=== PATIENT | female | born 1995 | race Caucasian/White ===

== ENCOUNTER 2018-03-22 17:14 | Emergency (ER) | payer OTHER ==
[~2018-03-22] VITALS: Ht 172.7 cm; Wt 85.7 kg
[2018-03-22 17:44] VITALS: BP 112/68
--- NOTE | 2018-03-22 17:46 | ED.ADGEN ---
Past History Past Medical History: Other Past Surgical History: Other Alcohol Use: None Drug Use: None Adult General Chief Complaint Chief Complaint Abnormal menstrual periods HPI HPI Patient is a 22-year-old female who presents with abnormal menstrual periods for the past several months. Patient recently released from nursing home and states that she went several months without having a period then started having a. Approximately 6 weeks ago and has had abnormal heavy menstrual periods since that time. Patient was seen by local primary care physician 3 weeks ago and started on a 5 day course of control. She states she discontinued control and has symptoms became worse after taking medication. Patient reports occasional cramping, and dark red menstrual blood that is more rust-colored in appearance. No dizziness lightheadedness. No other acute symptoms or complaints. Patient states she has not had chance to follow-up with her primary care physician due to a demanding work schedule and inability to get time off work.[] Review of Systems Review of Systems Review symptoms as per history of present illness. All other review symptoms are negative. All other systems were reviewed and found to be within normal limits, except as documented in this note. Allergies Allergies Allergies Coded Allergies Type Severity Reaction Last Updated Verified strawberry Allergy Unknown 01/26/15 No Physical Exam Physical Exam Constitutional: Well developed, well nourished, no acute distress, non-toxic appearance. [] HENT: Normocephalic, atraumatic, bilateral external ears normal, oropharynx moist, no oral exudates, nose normal. [] Eyes: PERRLA, EOMI, conjunctiva normal, no discharge. [] Neck: Normal range of motion, no tenderness, supple, no stridor. [] Cardiovascular:Heart rate regular rhythm, no murmur [] Lungs & Thorax: Bilateral breath sounds clear to auscultation [] Abdomen: Bowel sounds normal, soft, no tenderness, no masses, no pulsatile masses. [] Neurologic: Alert and oriented X 3, normal motor function, normal sensory function.[] Psychologic: Affect normal, judgement normal, mood normal. [] EKG EKG [] Radiology/Procedures Radiology/Procedures [] Course & Med Decision Making Course & Med Decision Making Pertinent Labs and Imaging studies reviewed. (See chart for details) [No acute symptoms or complaints. Patient provided resources for outpatient follow-up. Final Impression Final Impression [1. Abnormal uterine bleeding] Dragon Disclaimer Dragon Disclaimer This electronic medical record was generated, in whole or in part, using a voice recognition dictation system. MAMADOU GALLEGOS DO Mar 22, 2018 17:46
== END 2018-03-22 17:58 | disposition home or self-care (01) ==
LOC: ER 17:14
DX: N93.8 Other specified abnormal uterine and vaginal bleeding (principal); Z91.018 Allergy to other foods
CPT/HCPCS: 99281

== ENCOUNTER 2018-06-24 23:05 | Emergency (ER) | payer OTHER ==
[~2018-06-24] VITALS: Ht 172.7 cm; Wt 83.9 kg
[2018-06-24 23:15] VITALS: BP 128/69
--- NOTE | 2018-06-24 23:44 | PHYS DOC ---
Past History Past Medical History: No Pertinent History Past Surgical History: Other Alcohol Use: None Drug Use: None Adult General Chief Complaint Chief Complaint: SEXUALLY TRANSMITTED DISEASE HPI HPI Patient is a 22-year-old female who presents to the emergency department for evaluation. Her main concern is STD exposure. She states her boyfriend informed her that he cheated on her, and had contracted chlamydia and gonorrhea. The patient does admit to having some vaginal discharge, which has been present for the past few days. She denies any dysuria. She also reports having had problems with menorrhagia for several months, and has seen a primary care physician was put on control but it has not resolved the symptoms. She denies any dizziness lightheadedness, or any other concerns. She has no pain at this time. Review of Systems Review of Systems Constitutional: Denies fever or chills [] Eyes: Denies change in visual acuity, redness, or eye pain [] HENT: Denies nasal congestion or sore throat [] Respiratory: Denies cough or shortness of breath [] Cardiovascular: No additional information not addressed in HPI [] GI: Denies abdominal pain, nausea, vomiting, bloody stools or diarrhea [] : Denies dysuria or hematuria , or urinary frequency[] Musculoskeletal: Denies back pain or joint pain [] Integument: Denies rash or skin lesions [] All other systems were reviewed and found to be within normal limits, except as documented in this note. Current Medications Current Medications Current Medications Medications (Trade) Dose Ordered Sig/Tong Start Time Stop Time Status Last Admin Dose Admin Azithromycin (Zithromax) 1,000 mg 1X ONCE 06/24/18 23:45 06/24/18 23:46 Ceftriaxone Sodium (Rocephin Im) 250 mg 1X ONCE 06/24/18 23:45 06/24/18 23:46 Metronidazole (Flagyl) 2,000 mg 1X ONCE 06/24/18 23:45 06/24/18 23:46 Allergies Allergies Allergies Coded Allergies Type Severity Reaction Last Updated Verified strawberry Allergy Unknown 01/26/15 No Physical Exam Physical Exam PHYSICAL EXAM: CONSTITUTIONAL: Well developed, well nourished HEAD: normocephalic, atraumatic EENT: PERRL, EOMI. Conjunctivae normal color, sclerae non-icteric; moist mucous membranes. NECK: Supple, non-tender; no meningismus. LUNGS: Lungs CTA, breathing even and unlabored. Normal air movement. HEART: Regular rate and rhythm, no murmur CHEST: No deformity; non-tender ABDOMEN: The abdomen is soft, and non-tender, no masses or bruits. EXTREM: Normal ROM; no deformity, no calf tenderness. Normal pulses palpable in all extremities. There is no pedal edema. SKIN: No rash; no diaphoresis NEURO: Alert; normal speech and cognition; CN's grossly intact; strength grossly intact without focal deficit. BACK: No CVA TTP. Current Patient Data Vital Signs Vital Signs Date Time Temp Pulse Resp B/P (MAP) Pulse Ox O2 Delivery O2 Flow Rate FiO2 06/24/18 23:15 98.4 96 20 98 Room Air EKG EKG [] Radiology/Procedures Radiology/Procedures [] Course & Med Decision Making Course & Med Decision Making Patient will be treated for STDs, I discussed importance of close follow-up with Section Leader for menorrhagia (no clinical evidence of anemia at this time), and return precautions. Dragon Disclaimer Dragon Disclaimer This electronic medical record was generated, in whole or in part, using a voice recognition dictation system. Departure Departure: Impression: Primary Impression: STD (female) Disposition: HOME, SELF-CARE Condition: STABLE Patient Instructions: Menorrhagia, Rear-Facing -Only Child Safety Seat, Sexually Transmitted Disease Additional Instructions: Follow up with Dr Morris, Retirement Administrator, call [phone], for further evaluation and treatment. ERIC CHOWDHURY MD Jun 24, 2018 23:44
[2018-06-24] MEDS ORDERED: metroNIDAZOLE 500 MG TABLET PO ONE (23:45)
[2018-06-24] MEDS ORDERED: cefTRIAXone IM 250 MG VIAL IM ONE (23:45)
[2018-06-24] MEDS ORDERED: AZITHROMYCIN 250 MG TABLET. PO ONE (23:45)
== END 2018-06-25 00:22 | disposition home or self-care (01) ==
LOC: ER 23:05
DX: A64 Unspecified sexually transmitted disease (principal); Z91.018 Allergy to other foods
CPT/HCPCS: 81025; 96372; 99283; J0456; J0696